=== PATIENT | male | born 1955 | race Caucasian/White ===

== ENCOUNTER → 2017-05-23 | Day surgery (SDC) | payer MEDICARE ==
[~2017-05-23] MED LIST: APIX5TAB PO; CALA180T PO; FAMO20TA2 PO; LACTATED RINGER'S 1000 ML INJ 1,000 ML ONE; LEVA500T PO; LEXA5TAB PO; NORC10TA2 PO; PRAV20 PO; PROPOFOL 500 MG/50 ML BTL IV ONE; SODIUM CHLORID 0.9% 500 ML INJ 500 ML IV ONE; VITA20002 PO; ZOLP10TA3 PO
--- NOTE | 2017-05-23 11:06 | GIPROC ---
[facility] [address] [facility], [address] COLONOSCOPY PROCEDURE REPORT EXAM DATE: 05/23/2017 PATIENT NAME: Horacio Sheppard MR #: [id number] BIRTHDATE: 1955 ENDOSCOPIST: Kermit Nagy MD ORDER #: [id number] USED [employer] REPRESENTATIVE: Andrzej Wilkins RN STATUS: outpatient INDICATIONS: The patient is a 62 yr old male here for a colonoscopy due to high risk patient with personal history of colonic polyps PROCEDURE PERFORMED: Colonoscopy, screening MEDICATIONS: None, Per Anesthesia, None, and Per Anesthesia. PREP QUALITY: excellent ESTIMATED BLOOD LOSS: None CONSENT: The patient understands the risks and benefits of the procedure and understands that these risks include, but are not limited to: sedation, allergic reaction, infection, perforation and/or bleeding. Alternative means of evaluation and treatment include, among others: physical exam, x-rays, and/or surgical intervention. The patient elects to proceed with this endoscopic procedure. medical equipment was checked for proper function. Hand hygiene and appropriate measures for infection prevention was taken. After the risks, benefits and alternatives of the procedure were thoroughly explained, Informed consent was verified, confirmed and timeout was successfully executed by the treatment team. A digital exam revealed no abnormalities of the rectum The EC-[id number] ([id number]) endoscope was introduced through the anus and advanced to the cecum, which was identified by both the appendix and ileocecal valve. The instrument was then slowly withdrawn as the colon was fully examined. COLON FINDINGS: The colonic mucosa appeared normal. Retroflexed views revealed no abnormalities The scope was then completely withdrawn from the patient and the procedure terminated. PROCEDURE WITHDRAWAL TIME:5.7minutes ADVERSE EVENTS: There were no complications. IMPRESSIONS: 1. The colonic mucosa appeared normal 2. Retroflexed views revealed no abnormalities 3. Revealed no abnormalities of the rectum RECOMMENDATIONS: 1. High fiber diet 2. Yearly hemoccult 3. Follow-up: GI Clinic PRN RECALL: Return 5 years Colonoscopy Kermit Nagy MD eSigned: Kermit Nagy MD 05/23/2017 11:05 AM cc: Toñito Lindsay
== END | disposition home or self-care (01) ==
LOC: ESDC 07:54
PROVIDERS: ATTEND Internal Medicine Gastroenterology
DX: Z12.11 Encounter for screening for malignant neoplasm of colon (principal); Z86.010 Personal history of colon polyps
CPT/HCPCS: 00810; 45378; J7040; J7120